=== PATIENT | female | born 1945 | race Caucasian/White ===

== ENCOUNTER 2017-12-26 13:55 | Emergency (ER) | payer OTHER ==
[~2017-12-26] VITALS: Ht 154.9 cm; Wt 75.7 kg
[~2017-12-26 13:55] MED LIST: ASPI81TA28 PO; OXYC-609 PO; SIMV40TA2 PO
[2017-12-26 14:01] VITALS: TEMP 37.1; Ht 154.9 cm; Wt 75.7 kg
--- NOTE | 2017-12-26 14:33 | DIAGNOSTIC IMAGING REPORT ---
L HAND MIN 3 VIEWS ROUTINE CLINICAL HISTORY: Left hand pain following fall. COMPARISON: None FINDINGS: Alignment of the left hand is anatomic. There is no acute fracture. There is moderate joint space narrowing with osteophytosis within multiple articulations of left hand and wrist consistent with osteoarthritis. IMPRESSION: 1. No acute fracture or dislocation within the left hand. 2. Moderate osteoarthritis within multiple articulations of the left hand and wrist. Electronically signed by: Miles Mckeon M.D. 12/26/2017 2:32 PM Dictated Date/Time: 12/26/2017 2:29 PM
[2017-12-26 15:01] VITALS: BP 156/95; PULSE 78; O2SAT 98
--- NOTE | 2017-12-27 16:53 | EMERGENCY ROOM VISIT NOTE ---
ED Visit Note First contact with patient: 14:07 Chief Complaint: Left hand pain. History of Present Illness: Ms. Fierro is a 72-year-old white female who ambulates into the ED accompanied by female friend complaining of left wrist pain. Patient reports approximately one hour prior to arrival at the hospital she was at home vacuuming. She reports she thinks she might of tripped over the vacuum cord and fell on her outstretched left hand. She reports since the fall she is experiencing left hand pain over the fourth and fifth metacarpals. She describes this pain as a throbbing pain. She rates her discomfort 4/10. Her pain is nonradiating. Her pain worsens with palpation in all movements of the wrist. She is not identified any alleviating factors related to the pain. She reports she has not taken any medications for pain prior to arrival at the hospital. She denies any associated lightheaded dizziness before the fall, striking her head at the time of the fall, loss of consciousness at the time of the fall, signs of head injury since the fall, left shoulder pain, left elbow pain, left proximal forearm pain, left hand pain and left hand weakness/numbness /tingling. Additionally she denies any previous significant injuries or surgeries to the left wrist or hand. Review of Systems: As noted above in history of present illness. Past Medical History: Dyslipidemia, status post unspecified pancreatic surgery, and hysterectomy. Current Medications: Patient denies. Allergies to Medications: Patient denies. Social History: Patient is currently employed; she feels safe in her home environment; she denies tobacco use. Physical Examination: Vital Signs: Date Time Temp Pulse Resp B/P (MAP) Pulse Ox O2 Delivery O2 Flow Rate FiO2 12/26/17 15:01 78 18 156/95 98 Room Air 12/26/17 14:01 37.1 80 18 157/84 94 Room Air GENERAL: 72-year-old female in mild to moderate distress due to pain, nontoxic- appearing, afebrile and hemodynamically stable. NEUROLOGICAL: Awake, alert and oriented to person, place and time. Answering questions appropriately and following commands. Normal gait. SKIN: Warm, dry and pink. No soft tissue trauma noted. LEFT UPPER EXTREMITY: No gross bony deformity. No tenderness in the shoulder, elbow, forearm or wrist. Moderate tenderness over the mid to distal third and fourth metacarpals. There is swelling and ecchymosis in the area. I do not appreciate any bony deformity or crepitus. No tenderness over the MCP joints. No tenderness or swelling of the fingers. She does have difficulty extending her fourth and fifth metacarpal against resistance due to pain. Throughout the hand and fingers the skin was warm and pink and capillary refill is brisk. She was able to distinguish light sensations through all dermatomes. She refused to do range of motion at the level of the wrist due to pain but did have full range of motion in pronation and supination of the forearm. ED Course: Patient is assessed as noted above. Patient's medication list was reviewed. Patient was given ice for pain and comfort; she was offered pain medications and refused. Left Hand X-Rays: Was read by myself and the radiologist showing no acute fractures or dislocations. Radiologist does note moderate osteoarthritis within multiple articulations of the right hand and wrist. Patient's left wrist and hand was placed in an Ortho-Glass ulnar gutter splint. Patient was educated about today's findings and instructed on her treatment plan ; she verbalized understanding and agreement with this plan. Clinical Impression: Left hand contusion. Disposition: Patient discharged home in stable condition accompanied by female friends; prior to departure she was reassessed and subjectively reported she was feeling better and rated her discomfort 3/10. Plan: Comfort measures were discussed with the patient including rest, ice, splint use and alternating ibuprofen and acetaminophen for persistent pain every 3 hours. Patient was encouraged to follow-up with her PCP for recheck if no better in 4- 5 days. Patient is encouraged return ED for worsening/uncontrolled pain, worsening swelling, finger weakness/numbness/tingling or any new/concerning symptoms.
== END 2017-12-26 15:03 | disposition home or self-care (01) ==
LOC: C.EDB 13:57 → C.EDD 15:03
DX: S60.222A Contusion of left hand, initial encounter (principal); W18.09XA Striking against other object with subsequent fall, initial encounter; Y93.E3 Activity, vacuuming; Y99.8 Other external cause status; Z90.710 Acquired absence of both cervix and uterus; Z98.890 Other specified postprocedural states